=== PATIENT | male | born 1960 | race African-American/Black ===

== ENCOUNTER 2017-06-03 09:48 | Emergency (ER) | payer OTHER ==
[~2017-06-03] VITALS: Ht 170.2 cm; Wt 91.4 kg
[2017-06-03] MEDS ORDERED: MAXZIDE 75/501 EACH PO (12:37)
[2017-06-03] MEDS ORDERED: PRAVACHOL40 MG PO (12:37)
[2017-06-03] MEDS ORDERED: NIFEDIPINE ER90 MG PO (12:37)
[2017-06-03 13:03] VITALS: BP 131/81
== END 2017-06-03 13:04 | disposition home or self-care (01) ==
LOC: EME 09:48
DX: Z76.0 Encounter for issue of repeat prescription (principal); I10 Essential (primary) hypertension; E78.00 Pure hypercholesterolemia, unspecified
CPT/HCPCS: 99281; 99283

== ENCOUNTER 2017-07-26 21:56 | Emergency (ER) | payer OTHER ==
[~2017-07-26] VITALS: Ht 170.2 cm; Wt 90.3 kg
[~2017-07-26 21:56] MED LIST: MAXZIDE 75/501 EACH PO; NIFEDIPINE ER90 MG PO; PRAVACHOL40 MG PO
[2017-07-26] MEDS ORDERED: PRAVACHOL40 MG PO (23:54)
[2017-07-26] MEDS ORDERED: MAXZIDE 75/501 EACH PO (23:54)
[2017-07-26] MEDS ORDERED: NIFEDIPINE ER90 MG PO (23:54)
[2017-07-27 00:08] VITALS: BP 134/84
== END 2017-07-27 00:14 | disposition home or self-care (01) ==
LOC: EME 21:56
DX: Z76.0 Encounter for issue of repeat prescription (principal)
CPT/HCPCS: 99281; 99283

== ENCOUNTER 2017-08-08 18:13 | Emergency (ER) | payer OTHER ==
[~2017-08-08] VITALS: Ht 170.2 cm; Wt 89.1 kg
[2017-08-08 19:57] VITALS: BP 120/88
== END 2017-08-08 19:58 | disposition home or self-care (01) ==
LOC: EME 18:13
DX: R04.0 Epistaxis (principal); I10 Essential (primary) hypertension
CPT/HCPCS: 99281; 99284

== ENCOUNTER 2018-02-02 10:09 | Emergency (ER) | payer OTHER ==
[~2018-02-02] VITALS: Ht 170.2 cm; Wt 89.5 kg
[2018-02-02] MEDS ORDERED: PERCOCET 5/31 TABLET PO (11:49)
[2018-02-02 12:15] VITALS: BP 110/78
== END 2018-02-02 12:16 | disposition home or self-care (01) ==
LOC: EME 10:09
DX: S40.012A Contusion of left shoulder, initial encounter (principal); V43.52XA Car driver injured in collision with other type car in traffic accident, initial encounter; Y92.410 Unspecified street and highway as the place of occurrence of the external cause; I10 Essential (primary) hypertension; E78.5 Hyperlipidemia, unspecified
CPT/HCPCS: 73030; 99281; 99284